=== PATIENT | female | born 1995 | race Hispanic/Latino ===

== ENCOUNTER 2025-05-08 09:32 | Inpatient (IN) | payer OTHER ==
[2025-05-07 14:11] LABS: Syphilis Antibody Index 0.03 S/CO (<1.00 Non-Reactive)
[2025-05-07 14:13] LABS: HIV (1/2) Antibody/Antigen Non-Reactive (NonReactive); HIV 1/2 INDEX 0.06 S/CO (<1.00); Hep B Surf Ag Non-Reactive S/CO (NonReactive)
[2025-05-07 14:19] LABS: Hematocrit 33.1 % (34.9-44.5); Hemoglobin 11.3 g/dL (12.0-15.5); Mean Corpuscular Hemoglobin 27.6 pg (27.0-33.0); Mean Corpuscular Volume 80.7 fL (81.6-98.3); Platelet Count 221 10x3/uL (150-450); Red Blood Cell (RBC) Count 4.10 10x6/uL (3.90-5.03); White Blood Cell (WBC) Count 6.25 10x3/uL (3.5-10.5)
[2025-05-08] MEDS ORDERED: Carboprost 250 MCG/ML AMP IM PRN (10:10)
[2025-05-08] MEDS ORDERED: Bicitra 30 ML UDCUP PO PRN (10:10)
[2025-05-08] MEDS ORDERED: Methylergonovine 0.2 MG/ML VIAL IM PRN ×2 (10:10→13:34)
[2025-05-08] MEDS ORDERED: hydrALAZINE 20 MG/ML VIAL SLOW IVP PRN ×2 (10:10→13:34)
[2025-05-08] MEDS ORDERED: Ondansetron PF 4 MG/2 ML Vial IVP PRN ×4 (10:10→13:34)
[2025-05-08] MEDS ORDERED: Famotidine/PF 20 mg/2ml Vial SLOW IVP PRN (10:10)
[2025-05-08] MEDS ORDERED: Acetaminophen 500 MG TAB PO PRN (10:10)
[2025-05-08] MEDS ORDERED: Tranexamic Acid 1,000 MG/10 ML VIAL IVP PRN (10:10)
[2025-05-08] MEDS ORDERED: Diphenoxylate HCl/Atropine Tablet PO PRN ×2 (10:10)
[2025-05-08 10:15] VITALS: BMI 33.9
[2025-05-08] MEDS ORDERED: diphenhydrAMINE 50 MG/ML VIAL IVP PRN (13:33)
[2025-05-08] MEDS ORDERED: Meperidine HCl/PF 25 MG (1 mL) VIAL SLOW IVP PRN (13:33)
[2025-05-08] MEDS ORDERED: Acetaminophen 325 MG TAB PO PRN (13:34)
[2025-05-08] MEDS ORDERED: diphenhydrAMINE 25 MG CAP PO PRN (13:34)
[2025-05-08] MEDS ORDERED: Bisacodyl 10 MG SUPP PR PRN (13:34)
[2025-05-08] MEDS ORDERED: Lanolin Ointment 7 GM TUBE TOP PRN (13:34)
[2025-05-08] MEDS ORDERED: Communication Order-Pharmacy FS SCH (13:45)
[2025-05-08] MEDS ORDERED: Oxytocin 30 units/NS 500 ML 500 ML IV SCH (13:45)
[2025-05-08] MEDS: Ketorolac Tromethamine 30 MG (1 mL) VIAL IVP SCH (14:49)
[2025-05-08] MEDS: Oxytocin 30 units/NS 500 ML 500 ML IV SCH (14:50)
[2025-05-08] MEDS: Dexamethasone 10 MG/ML VIAL ONE (19:32)
[2025-05-08] MEDS: Ondansetron PF 4 MG/2 ML Vial ONE (19:32)
[2025-05-08] MEDS: PHENYLEPHRINE-NS 100 MCG/ML 10 ML SYRINGE ONE ×3 (19:33)
[2025-05-08] MEDS: Oxytocin 10 UNITS/ML VIAL ONE (19:33)
[2025-05-08] MEDS: Ketorolac Tromethamine 30 MG (1 mL) VIAL IVP PRN (21:12)
[2025-05-09] MEDS: Ferrous Sulfate 325 MG TAB PO SCH (00:17)
[2025-05-09] MEDS: Ibuprofen 800 MG TAB PO SCH (05:41)
[2025-05-09 06:24] LABS: Hematocrit 26.2 % (34.9-44.5); Hemoglobin 8.7 g/dL (12.0-15.5); Mean Corpuscular Hemoglobin 27.2 pg (27.0-33.0); Mean Corpuscular Volume 81.9 fL (81.6-98.3); Platelet Count 185 10x3/uL (150-450); Red Blood Cell (RBC) Count 3.20 10x6/uL (3.90-5.03); White Blood Cell (WBC) Count 8.74 10x3/uL (3.5-10.5)
[2025-05-09] MEDS: HYDROcodone/Acetaminophen 5/325 mg Tablet PO PRN (07:16)
[2025-05-09] MEDS: Boostrix 0.5 ML (Tdap) VIAL (>/=7 yrs of age) IM ONE (07:35)
[2025-05-09] MEDS: Simethicone Chewable 80 MG TAB PO PRN (13:37)
[2025-05-10 21:09] VITALS: BP 116/74; TEMP 99.4
[2025-05-11] MEDS ORDERED: Ibuprofen 800 MG TAB PO SCH (04:00)
== END 2025-05-11 02:00 | disposition home or self-care (01) | DRG 788 ==
LOC: CSHLD 09:32 → CSHPP 15:43
PROVIDERS: ADMIT Family Medicine; ATTEND Family Medicine
PROC: 10D00Z1 Extraction of Products of Conception, Low, Open Approach (ICD-10-PCS; principal; 2025-05-08)
DX: O26.643 Intrahepatic cholestasis of pregnancy, third trimester (principal); O30.043 Twin pregnancy, dichorionic/diamniotic, third trimester; O99.02 Anemia complicating childbirth; Z37.2 Twins, both liveborn; Z3A.36 36 weeks gestation of pregnancy
CPT/HCPCS: 36415; 51702; 85027; 86780; 86850; 86900; 86901; 87340; 87389; 88307; J1100; J1885; J2250; J2274; J2405; J2590; J3010